=== PATIENT | female | born 2005 | race Caucasian/White ===

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

== ENCOUNTER 2025-01-17 11:19 | Emergency (ER) | payer OTHER ==
--- NOTE | 2025-01-17 11:25 | ERPHSYRPT ---
- History of Present Illness Time Seen by Provider: 01/17/25 11:24 Source: patient Exam Limitations: no limitations Physician History: This is a 19-year-old white female patient of Dr. Montalvo who presents by private vehicle directly from the infusion center after she was thought to have an infusion reaction/hypersensitivity reaction to iron infusion. This is the patient's third visit to the infusion center for iron infusion. She states she has never had this intense of reaction while receiving iron infusion. Patient states her back muscles and chest muscles hurt and she has blotching of her hands. She is very anxious and arrives to emergency department tachycardic. Patient has a history gastroesophageal reflux disease and chronic anemia. Timing/Duration: today Severity: moderate Associated Symptoms: shortness of breath (Mild), chest pain, rash (Hands blotching rash), other (Back pain), No cough Allergies/Adverse Reactions: No Known Drug Allergies Allergy (Verified 01/17/25 11:35) Home Medications: Norgestimate-Ethinyl Estradiol [Silvina 0.25-0.035 mg Tablet] 1 tab PO DAILY 09/05/23 [History] Omeprazole 20 mg PO DAILY 12/27/24 [History] Hx Tetanus, Diphtheria Vaccination/Date Given: Yes Hx Influenza Vaccination/Date Given: Yes Travel Risk - International Travel Have you traveled outside of the country in past 3 weeks: No - Review of Systems Constitutional: No Symptoms Eyes: No Symptoms Ears, Nose, & Throat: No Symptoms Respiratory: No Symptoms Cardiac: Chest Pain Genitourinary Symptoms: No Symptoms Musculoskeletal: Back Pain Skin: No Symptoms Neurological: No Symptoms Psychological: Anxiety Endocrine: No Symptoms Hematologic/Lymphatic: No Symptoms Immunological/Allergic: No Symptoms All Other Systems: Reviewed and Negative - Past Medical History Pertinent Past Medical History: Yes Neurological History: No Pertinent History ENT History: No Pertinent History Cardiac History: Other Respiratory History: No Pertinent History Endocrine Medical History: No Pertinent History Musculoskeletal History: No Pertinent History GI Medical History: GERD History: No Pertinent History Psycho-Social History: No Pertinent History Female Reproductive Disorders: No Pertinent History Other Medical History: murmur, hiatal hernia, anemia - Past Surgical History Past Surgical History: Yes Neuro Surgical History: No Pertinent History Cardiac: No Pertinent History Respiratory: No Pertinent History Gastrointestinal: No Pertinent History Genitourinary: No Pertinent History Musculoskeletal: No Pertinent History Female Surgical History: No Pertinent History Other Surgical History: EGD - Social History Smoking Status: Never smoker Exposure to second hand smoke: No Drug Use: none - Social Determinants of Health Will the patient participate in the screening: Yes Do you worry about a steady place to live?: No In the past 12 months,have you had to go without utilities?: No Transportation Issues: No Has anyone in your support network made you feel unsafe?: No Have you or anyone in your house had to go w/o enough food: No - Nursing Vital Signs Nursing Vital Signs: Initial Vital Signs Temperature 97.0 F 01/17/25 11:20 Pulse Rate 124 H 01/17/25 11:20 Respiratory Rate 18 01/17/25 11:20 Blood Pressure 112/65 01/17/25 11:20 O2 Sat by Pulse Oximetry 100 01/17/25 11:20 Pain Scale Pain Intensity 5 - Physical Exam General Appearance: mild distress, alert, anxiety Eye Exam: PERRL/EOMI, eyes nml inspection Ears, Nose, Throat Exam: normal ENT inspection, moist mucous membranes Neck Exam: normal inspection, non-tender, supple, full range of motion Respiratory Exam: normal breath sounds, chest tenderness, lungs clear, airway intact, No respiratory distress Cardiovascular Exam: tachycardia Gastrointestinal/Abdomen Exam: soft, normal bowel sounds, No tenderness Pelvic Exam: not done Rectal Exam: not done Back Exam: normal inspection, normal range of motion, muscle spasm, No CVA tenderness, No vertebral tenderness Extremity Exam: normal inspection, normal range of motion, pelvis stable Neurologic Exam: alert, oriented x 3, cooperative, horseradish grinder II-XII nml as tested, nml cerebellar function, nml station & gait, sensation nml Skin Exam: normal color, warm, dry Lymphatic Exam: No adenopathy SpO2 Interpretation: normal O2 Delivery: Room Air - Course Nursing assessment & vital signs reviewed: Yes EKG Interpreted by Me: RATE (131), Sinus Tach, NORMAL AXIS, NORMAL INTERVALS, NORMAL QRS, Other (PVCs. No acute ischemia present. QTc 439) Ordered Tests: Active Orders 24 hr Category Date Time Status EKG-ER Only STAT Care 01/17/25 11:22 Active IV Insertion STAT Care 01/17/25 11:22 Active CBC W DIFF Stat Lab 01/17/25 11:38 Completed CMP Stat Lab 01/17/25 11:38 Completed HCG QUALITATIVE, SERUM Stat Lab 01/17/25 11:38 Completed TROPONIN Q4H Lab 01/17/25 11:38 Completed TROPONIN Q4H Lab 01/17/25 15:30 Ordered TROPONIN Q4H Lab 01/17/25 19:30 Ordered UA W/RFX UR CULTURE Stat Lab 01/17/25 12:47 Completed Medication Summary Discontinued Medications Generic Name Dose Route Start Last Admin Trade Name Saulq PRN Reason Stop Dose Admin Methylprednisolone Sodium 0 mg 01/17/25 11:53 01/17/25 12:03 Succinate 125 mg/ Sterile IV 01/17/25 11:54 125 mg Water 2 ml STAT ONE Administration Diphenhydramine HCl 50 mg 01/17/25 11:53 01/17/25 12:07 Diphenhydramine Hcl 50 Mg/Ml Vial IV 01/17/25 11:54 50 mg STAT ONE Administration Diphenhydramine HCl Confirm 01/17/25 11:58 Diphenhydramine Hcl 50 Mg/Ml Vial Administered 01/17/25 11:59 Dose 50 mg .ROUTE .STK-MED ONE Famotidine 40 mg 01/17/25 11:54 01/17/25 12:01 Famotidine 20 Mg Tablet PO 01/17/25 11:55 40 mg STAT ONE Administration Famotidine Confirm 01/17/25 11:58 Famotidine 20 Mg Tablet Administered 01/17/25 11:59 Dose 40 mg .ROUTE .STK-MED ONE Sodium Chloride 1,000 mls @ 999 mls/hr 01/17/25 11:22 01/17/25 11:50 Sodium Chloride 0.9% 1000 Ml IV 01/17/25 12:22 999 mls/hr .Q1H1M STA Administration Sodium Chloride Confirm 01/17/25 11:42 Sodium Chloride 0.9% 1000 Ml Administered 01/17/25 11:43 Dose 1,000 mls @ ud .ROUTE .STK-MED ONE Lorazepam 0.5 mg 01/17/25 11:24 01/17/25 11:56 Lorazepam 2 Mg/1 Ml 2 Mg Vial IV 01/17/25 11:25 Not Given STAT ONE Lorazepam Confirm 01/17/25 11:42 Lorazepam 2 Mg/1 Ml 2 Mg Vial Administered 01/17/25 11:43 Dose 2 mg .ROUTE .STK-MED ONE Methylprednisolone Sodium Succinate Confirm 01/17/25 11:59 Methylprednis Sod Succ 125 Mg/2 Ml Vial Administered 01/17/25 12:00 Dose 125 mg .ROUTE .STK-MED ONE Morphine Sulfate 4 mg 01/17/25 11:22 01/17/25 11:55 Morphine Sulfate 4 Mg/Ml Injection IV 01/17/25 11:23 Not Given STAT ONE Morphine Sulfate Confirm 01/17/25 11:42 Morphine Sulfate 4 Mg/Ml Injection Administered 01/17/25 11:43 Dose 4 mg .ROUTE .STK-MED ONE Ondansetron HCl 4 mg 01/17/25 11:22 01/17/25 11:56 Ondansetron Hcl 4 Mg/2 Ml Vial IV 01/17/25 11:23 Not Given STAT ONE Ondansetron HCl Confirm 01/17/25 11:41 Ondansetron Hcl 4 Mg/2 Ml Vial Administered 01/17/25 11:42 Dose 4 mg .ROUTE .STK-MED ONE Sterile Water Confirm 01/17/25 11:58 Water For Injection,Sterile 10 Ml Vial Administered 01/17/25 11:59 Dose 10 ml IJ .STK-MED ONE Lab/Rad Data: Laboratory Result Diagrams 01/17/25 11:38 01/17/25 11:38 Laboratory Results 01/17/25 01/17/25 01/17/25 Range/Units 12:47 11:38 11:38 WBC (3.98-10.04) x10^3/uL RBC (3.93-5.22) x10^6/uL Hgb (11.2-15.7) g/dL Hct (34.1-44.9) % MCV (79.4-94.8) fL MCH (25.6-32.2) pg MCHC (32.2-35.5) g/dL RDW (11.7-14.4) % Plt Count (182-369) x10^3/uL MPV (9.4-12.3) fL Gran % (34.0-71.1) % Immature Gran % (Auto) (0.001-0.429) % Nucleat RBC Rel Count (0.00-0.2) % Eos # (Auto) (0.04-0.36) x10^3/uL Immature Gran # (Auto) (0.001-0.031) x10^3u/L Absolute Lymphs (auto) (1.18-3.74) x10^3/uL Absolute Monos (auto) (0.24-0.86) x10^3/uL Absolute Nucleated RBC (0.00-0.012) x10^3u/L Lymphocytes % (19.3-51.7) % Monocytes % (4.7-12.5) % Eosinophils % (0.7-5.8) % Basophils % (0.1-1.2) % Absolute Granulocytes (1.56-6.13) x10^3/uL Basophils # (0.01-0.08) x10^3/uL Sodium (135-145) mmol/L Potassium (3.5-5.1) mmol/L Chloride (98-107) mmol/L Carbon Dioxide (22-30) mmol/L Anion Gap (5-15) MEQ/L BUN (7-17) mg/dL Creatinine (0.52-1.04) mg/dL Estimated GFR ML/MIN Glucose (74-106) mg/dL Calcium (8.4-10.2) mg/dL Total Bilirubin (0.2-1.3) mg/dL AST (14-36) U/L ALT (0-35) U/L Alkaline Phosphatase (38-126) U/L Troponin I < 0.012 (0.000-0.033) ng/mL Serum Total Protein (6.3-8.2) g/dL Albumin (3.5-5.0) g/dL Serum HCG, Qual NEGATIVE (NEGATIVE) Urine Color Yellow (Yellow) Urine Appearance Clear (Clear) Urine pH 6.0 (4.6-8.0) Ur Specific [place] 1.010 (1.005-1.030) Urine Protein Negative (Negative) Urine Glucose (UA) Negative (Negative) mg/dL Urine Ketones Negative (Negative) Urine Blood Negative (Negative) Urine Nitrite Negative (Negative) Urine Bilirubin Negative (Negative) Urine Urobilinogen 0.2 (0.2) mg/dL Ur Leukocyte Esterase Negative (Negative) U Hyaline Cast (Auto) NONE SEEN (0-2) /LPF Urine Microscopic RBC 0-2 (0-5) /HPF Urine Microscopic WBC 3-5 (0-5) /HPF Ur Epithelial Cells Few (None Seen) /HPF Urine Bacteria None Seen (None Seen) /HPF Urine Culture Reflexed NO (NO) Slides for Path Review 01/17/25 01/17/25 Range/Units 11:38 11:38 WBC 8.9 (3.98-10.04) x10^3/uL RBC 6.50 H (3.93-5.22) x10^6/uL Hgb 15.3 (11.2-15.7) g/dL Hct 50.8 H (34.1-44.9) % MCV 78.2 L (79.4-94.8) fL MCH 23.5 L (25.6-32.2) pg MCHC 30.1 L (32.2-35.5) g/dL RDW 26.0 H (11.7-14.4) % Plt Count 415 H (182-369) x10^3/uL MPV 9.7 (9.4-12.3) fL Gran % 52.9 (34.0-71.1) % Immature Gran % (Auto) 0.2 (0.001-0.429) % Nucleat RBC Rel Count 0.0 (0.00-0.2) % Eos # (Auto) 0.10 (0.04-0.36) x10^3/uL Immature Gran # (Auto) 0.02 (0.001-0.031) x10^3u/L Absolute Lymphs (auto) 3.55 (1.18-3.74) x10^3/uL Absolute Monos (auto) 0.44 (0.24-0.86) x10^3/uL Absolute Nucleated RBC 0.00 (0.00-0.012) x10^3u/L Lymphocytes % 40.1 (19.3-51.7) % Monocytes % 5.0 (4.7-12.5) % Eosinophils % 1.1 (0.7-5.8) % Basophils % 0.7 (0.1-1.2) % Absolute Granulocytes 4.69 (1.56-6.13) x10^3/uL Basophils # 0.06 (0.01-0.08) x10^3/uL Sodium 141 (135-145) mmol/L Potassium 4.1 (3.5-5.1) mmol/L Chloride 106 (98-107) mmol/L Carbon Dioxide 18 L (22-30) mmol/L Anion Gap 20.8 H (5-15) MEQ/L BUN 13 (7-17) mg/dL Creatinine 0.66 (0.52-1.04) mg/dL Estimated GFR 129.5 ML/MIN Glucose 124 H (74-106) mg/dL Calcium 10.2 (8.4-10.2) mg/dL Total Bilirubin 0.70 (0.2-1.3) mg/dL AST 32 (14-36) U/L ALT 18 (0-35) U/L Alkaline Phosphatase 62 (38-126) U/L Troponin I (0.000-0.033) ng/mL Serum Total Protein 7.9 (6.3-8.2) g/dL Albumin 5.2 H (3.5-5.0) g/dL Serum HCG, Qual (NEGATIVE) Urine Color (Yellow) Urine Appearance (Clear) Urine pH (4.6-8.0) Ur Specific [place] (1.005-1.030) Urine Protein (Negative) Urine Glucose (UA) (Negative) mg/dL Urine Ketones (Negative) Urine Blood (Negative) Urine Nitrite (Negative) Urine Bilirubin (Negative) Urine Urobilinogen (0.2) mg/dL Ur Leukocyte Esterase (Negative) U Hyaline Cast (Auto) (0-2) /LPF Urine Microscopic RBC (0-5) /HPF Urine Microscopic WBC (0-5) /HPF Ur Epithelial Cells (None Seen) /HPF Urine Bacteria (None Seen) /HPF Urine Culture Reflexed (NO) Slides for Path Review YES - Progress Progress: improved Progress Note: 01/17/25 12:03 My medical decision making of the assignment of moderate complexity to this patient's medical issue is based on review the patient's past medical history, review the patient's medication list, reviewed patient drug allergy list, history present illness and physical findings on examination. The workup in this patient includes placement of intravenous line, infusion of normal saline solution, EKG, troponin level, CBC, CMP, urinalysis, test. I also prescribed Zofran, morphine and Ativan. However, the patient is refusing morphine and Ativan. We also provided the patient with Benadryl, Solu-Medrol and Pepcid. Differential diagnosis includes but is not limited to hypersensitivity infusion reaction to iron, myocardial infarction, anxiety, muscle spasms, electrolyte abnormalities, arrhythmia 01/17/25 13:08 I interpreted the patient's laboratory data results. Based on the laboratory data results there are no acute, emergent medical issues. 01/17/25 13:11 The patient was reexamined. Clinically she is feeling much better. The chest pain and back pain has resolved. Counseled pt/family regarding: lab results, diagnosis, need for follow-up Medical Desision Making - Independent Historian Additional History obtained from: Mother - Diagnostic Testing Diagnostic test were ordered, analyzed, and reviewed by me: Yes - Risk of complications Low Risk: Low risk of morbidity from additional dx testing or treatment The pt has a mod risk of morbidity or mortality based on: Need for prescription drug management - Departure Departure Disposition: Home Clinical Impression: Iron adverse reaction Condition: Stable Critical Care Time: No Referrals: SANTANA MONTALVO DO [Primary Care Provider] - Follow up/PCP as directed Additional Instructions: Drink plenty of clear liquids. Discussed the future use of iron infusions with your prescribing provider. Take your Benadryl, prednisone and Pepcid as prescribed. Call your prescribing provider today, 01/17/2025, to make arranges for follow-up appointment for further evaluation management and to be seen in the next 3 to 5 days. Return to the emergency department if symptoms recur Prescriptions: Diphenhydramine HCl 25 mg [Benadryl 25 mg Capsule] 25 mg PO Q6H PRN #20 cap Prednisone 10 mg [Deltasone 10 mg] 10 mg PO TID #12 tablet Famotidine 20 mg [Pepcid 20 MG] 20 mg PO DAILY #5 tablet
[2025-01-17] MEDS ORDERED: Zofran 4 MG/2 ML VIAL ONE (11:41)
[2025-01-17] MEDS ORDERED: MORPHINE SULFATE 4 MG INJ ONE (11:42)
[2025-01-17] MEDS ORDERED: Sodium Chloride 0.9% 1000 ML 1,000 ML ONE (11:42)
[2025-01-17] MEDS ORDERED: Ativan 2 MG/1 ML VIAL ONE (11:42)
[2025-01-17 11:47] LABS: Absolute Neutrophil Ct (ANC) 4.69 x10^3/uL (1.56-6.13); BASOPHIL % 0.7 % (0.1-1.2); Basophil (Absolute #) 0.06 x10^3/uL (0.01-0.08); Eosinophil % 1.1 % (0.7-5.8); Hematocrit 50.8 % (34.1-44.9); Hemoglobin 15.3 g/dL (11.2-15.7); IMMATURE GRAN # 0.02 x10^3u/L (0.001-0.031); IMMATURE GRAN % 0.2 % (0.001-0.429); Lymphocyte (Absolute #) 3.55 x10^3/uL (1.18-3.74); Lymphocytes % 40.1 % (19.3-51.7); Mean Cell Volume 78.2 fL (79.4-94.8); Mean Corpuscular Hemoglobin 23.5 pg (25.6-32.2); Mean Corpuscular Hgb Concent. 30.1 g/dL (32.2-35.5); Mean Platelet Volume 9.7 fL (9.4-12.3); Monocyte (Absolute #) 0.44 x10^3/uL (0.24-0.86); Neutrophil % 52.9 % (34.0-71.1); Platelet Count 415 x10^3/uL (182-369); White Blood Count 8.9 x10^3/uL (3.98-10.04)
[2025-01-17 11:49] VITALS: TEMP 97
[2025-01-17] MEDS: Sodium Chloride 0.9% 1000 ML 1,000 ML IV STA (11:50)
[2025-01-17] MEDS: MORPHINE SULFATE 4 MG INJ IV ONE (11:55)
[2025-01-17] MEDS: Ativan 2 MG/1 ML VIAL IV ONE (11:56)
[2025-01-17] MEDS: Zofran 4 MG/2 ML VIAL IV ONE (11:56)
[2025-01-17] MEDS ORDERED: BENADRYL 50 MG/ML ONE (11:58)
[2025-01-17] MEDS ORDERED: Sterile H2O 10 ml IJ ONE (11:58)
[2025-01-17] MEDS ORDERED: Pepcid 20 MG ONE (11:58)
[2025-01-17] MEDS ORDERED: solu-MEDROL ONE (11:59)
[2025-01-17] MEDS: Pepcid 20 MG PO ONE (12:01)
[2025-01-17] MEDS: solu-MEDROL 125 MG, Sterile H2O 10 ml 2 ML IV ONE (12:03)
[2025-01-17 12:04] LABS: ALBUMIN 5.2 g/dL (3.5-5.0); ANION GAP 20.8 MEQ/L (5-15); BILIRUBIN,TOTAL 0.7 mg/dL (0.2-1.3); Calcium 10.2 mg/dL (8.4-10.2); Creatinine 1 0.66 mg/dL (0.52-1.04); EST GLOMERULAR FILTRATION RATE 129.5 ML/MIN; HCG SERUM TEST NEGATIVE (NEGATIVE); Potassium 4.1 mmol/L (3.5-5.1); Total Protein 7.9 g/dL (6.3-8.2)
[2025-01-17] MEDS: BENADRYL 50 MG/ML IV ONE (12:07)
[2025-01-17 12:47] LABS: Slide Review 1 YES
[2025-01-17 12:58] LABS: Appearance Clear (Clear); Bacteria None Seen /HPF (None Seen); Bilirubin Negative (Negative); Blood Negative (Negative); Epithelial Cells Few /HPF (None Seen); Glucose, Urine Negative (Negative); Hyaline Casts NONE SEEN /LPF (0-2); Ketones Negative (Negative); Leukocyte Esterase Negative (Negative); Nitrite Negative (Negative); Protein,Urine Dip Negative (Negative); RBC 0-2 /HPF (0-5); Urobilinogen 0.2 mg/dL (0.2)
[2025-01-17 13:34] VITALS: BP 115/66; PULSE 85; RESP 18; O2SAT 100
== END 2025-01-17 13:36 | disposition home or self-care (01) ==
LOC: ED 11:19
DX: M79.18 Myalgia, other site (principal); M54.9 Dorsalgia, unspecified; R07.89 Other chest pain; R21 Rash and other nonspecific skin eruption; T45.4X5A Adverse effect of iron and its compounds, initial encounter; Y92.538 Other ambulatory health services establishments as the place of occurrence of the external cause; Z79.52 Long term (current) use of systemic steroids; Z79.899 Other long term (current) drug therapy
CPT/HCPCS: 36415; 80053; 81001; 84484; 84703; 85025; 93005; 96374; 96375; 99284; J1200; J2060; J2270; J2405; J2919; A9270-GY